=== PATIENT | female | born 1960 | race Caucasian/White ===

== ENCOUNTER → 2016-11-04 11:13 | Outpatient (CLI) | payer MEDICAID ==
[2016-11-04 11:37] LABS: BASOPHILS 0.3 % (0-2); EOSINOPHILS 2.3 % (0-7); HEMATOCRIT 40.6 % (36.0-48.0); HEMOGLOBIN 13.3 g/dL (12-16); IMMATURE GRANULOCYTES 0.2 % (0-5); LYMPHOCYTES 27.9 % (15-50); MCHC 32.8 g/dL (31.0-37.0); MCV 91.4 fL (80.0-100.0); MEAN PLATELET VOLUME 8.7 fL (7.4-10.4); MONOCYTES 4.4 % (2-11); NEUTROPHILS 64.9 % (40-80); PLATELET COUNT 381 10x3/uL (130-400); RBC 4.44 10x6/uL (4.00-5.40); RDW 12.8 % (11.5-14.5)
== END | disposition home or self-care (01) ==
LOC: D.LAB 11:13
PROVIDERS: Internal Medicine Gastroenterology
DX: K29.71 Gastritis, unspecified, with bleeding (principal); K25.3 Acute gastric ulcer without hemorrhage or perforation; K44.9 Diaphragmatic hernia without obstruction or gangrene; K20.9 Esophagitis, unspecified; K26.3 Acute duodenal ulcer without hemorrhage or perforation; R93.3 Abnormal findings on diagnostic imaging of other parts of digestive tract

== ENCOUNTER → 2016-12-20 07:58 | Outpatient (CLI) | payer MEDICAID ==
[2016-12-20 08:55] LABS: HELICOBACTER PYLORI IGG NEGATIVE (NEGATIVE)
[2016-12-20 09:02] LABS: ALBUMIN 4.8 g/dL (3.4-5.0); BILIRUBIN - DIRECT 0.07 mg/dL (0.00-0.30); BILIRUBIN - INDIRECT 0.53 mg/dL (0.00-1.00); BILIRUBIN - TOTAL 0.6 mg/dL (0.2-1.3)
== END | disposition home or self-care (01) ==
LOC: D.LAB 12-15 10:00 → D.CT 12-15 10:30 → D.LAB 07:58
PROVIDERS: Internal Medicine Gastroenterology
DX: R11.0 Nausea (principal); R10.9 Unspecified abdominal pain

== ENCOUNTER → 2017-02-20 07:43 | Outpatient (CLI) | payer MEDICAID | END | disposition home or self-care (01) | LOC: D.CT 02-16 08:00 | DX: R10.9 Unspecified abdominal pain (principal); R10.13 Epigastric pain ==

== ENCOUNTER 2017-04-11 21:10 | Emergency (ER) | payer MEDICAID ==
[2017-04-11 21:40] LABS: BASOPHILS 0.3 % (0-2); EOSINOPHILS 4.5 % (0-7); HEMATOCRIT 37.9 % (36.0-48.0); HEMOGLOBIN 12.5 g/dL (12-16); IMMATURE GRANULOCYTES 0.1 % (0-5); MCH 30.3 pg (26.0-34.0); MCV 91.8 fL (80.0-100.0); MEAN PLATELET VOLUME 8.6 fL (7.4-10.4); MONOCYTES 6.1 % (2-11); PLATELET COUNT 423 10x3/uL (130-400); RBC 4.13 10x6/uL (4.00-5.40); RDW 12.3 % (11.5-14.5); WBC 9.8 10x3/uL (4.8-10.8)
[2017-04-11 21:51] LABS: HCG SERUM NEGATIVE (NEGATIVE)
[2017-04-11 21:52] LABS: ALBUMIN 4.1 g/dL (3.4-5.0); ALKALINE PHOSPHATASE 65 U/L (46-116); ALT (SGPT) 13 U/L (10-68); BILIRUBIN - TOTAL 0.17 mg/dL (0.2-1.3); CALC OSMOLALITY 286 mosm/kg (275-300); CARBON DIOXIDE 30.1 mmol/L (21.0-32.0); CHLORIDE - SERUM 104 mmol/L (98-107); CREATININE - SERUM 0.8 mg/dL (0.6-1.3); GLUCOSE 106 mg/dL (74-106); POTASSIUM - SERUM 4.4 mmol/L (3.5-5.1); PROTEIN - SERUM 7.9 g/dL (6.4-8.2); SODIUM 141 mmol/L (136-145); UREA NITROGEN 30 mg/dL (7-18); eGFR NON AFRICAN AMERICAN 78 mL/min (90-120)
[2017-04-11 22:00] LABS: APPEARANCE CLEAR (CLEAR); BILIRUBIN NEGATIVE (NEGATIVE); COLOR YELLOW (YELLOW); GLUCOSE NEGATIVE (NEGATIVE); KETONE NEGATIVE (NEGATIVE); NITRITE NEGATIVE (NEGATIVE); PROTEIN NEGATIVE (NEGATIVE); SPECIFIC GRAVITY 1.025 (1.005-1.020); UROBILINOGEN NORMAL (NORMAL); WHITE CELLS - URINE 0-5 /hpf (0-5)
[2017-04-11 22:01] LABS: BACTERIA FEW /hpf (NONE SEEN); EPITHELIAL CELLS 0-5 /hpf (0-5); RED CELLS - URINE OCC /hpf (0-5)
== END 2017-04-12 01:42 | disposition home or self-care (01) ==
LOC: D.ER 21:10
PROVIDERS: Emergency Medicine
DX: N23 Unspecified renal colic (principal); I10 Essential (primary) hypertension

== ENCOUNTER → 2017-06-20 07:45 | Outpatient (CLI) | payer OTHER ==
[~2017-06-20 07:45] MED LIST: BENTYL 20 MG TA20 MG PO; HYDROCODONE-APA1 TAB PO; LIBRAX CAPSULE1 CAP PO; LISINOPRIL-HCTZ1 TA2 PO; OMEPRAZOLE40 MG PO; PRAVACHOL40 MG PO; XANAX0.5 MG PO; ZOFRAN ODT4 MG/UDTAB PO
[2017-06-20 08:36] LABS: BASOPHILS 0.3 % (0-2); EOSINOPHILS 5.9 % (0-7); HEMATOCRIT 36.7 % (36.0-48.0); HEMOGLOBIN 11.9 g/dL (12-16); IMMATURE GRANULOCYTES 0.1 % (0-5); LYMPHOCYTES 36.2 % (15-50); MCH 28.8 pg (26.0-34.0); MCHC 32.4 g/dL (31.0-37.0); MCV 88.9 fL (80.0-100.0); MEAN PLATELET VOLUME 8.7 fL (7.4-10.4); MONOCYTES 4.2 % (2-11); NEUTROPHILS 53.3 % (40-80); PLATELET COUNT 427 10x3/uL (130-400); RBC 4.13 10x6/uL (4.00-5.40); RDW 12.6 % (11.5-14.5); WBC 10.2 10x3/uL (4.8-10.8)
[2017-06-20 08:45] LABS: HELICOBACTER PYLORI IGG NEGATIVE (NEGATIVE)
[2017-08-15 11:06] VITALS: BMI 37.1
== END | disposition home or self-care (01) ==
LOC: D.LAB 07:45
PROVIDERS: Internal Medicine Gastroenterology
DX: K25.7 Chronic gastric ulcer without hemorrhage or perforation (principal); K44.9 Diaphragmatic hernia without obstruction or gangrene; T18.2XXA Foreign body in stomach, initial encounter; K31.1 Adult hypertrophic pyloric stenosis

== ENCOUNTER 2017-08-15 10:05 | Day surgery (SDC) | payer OTHER, MEDICAID ==
[~2017-08-15] VITALS: Ht 152.4 cm; Wt 86.4 kg
--- NOTE | ~2017-08-15 | OP ---
PATIENT NAME: JACOB MORALEZ MEDICAL RECORD: [id number] :60 LOCATION:D.OPS ADMISSION DATE: SURGEON: DEMARCUS CERVANTES MD DATE OF OPERATION: 08/15/2017 PREOPERATIVE DIAGNOSES: 1. Pyloric stenosis. 2. Epigastric abdominal pain. 3. Nausea. 4. Gastroesophageal reflux. POSTOPERATIVE DIAGNOSES: 1. Pyloric stenosis. 2. Epigastric abdominal pain. 3. Nausea. 4. Gastroesophageal reflux. 5. Tight pyloric stenosis, also bezoar. PROCEDURES: 1. Esophagogastroduodenoscopy with antral biopsies. 2. Balloon dilation of pylorus with a wmuklkn-khb-tuxswihg balloon to 44-Malawian. SURGEON: Demarcus Cervantes MD LEGAL SERVICES MANAGER: None. BLOOD LOSS: Minimal. ANESTHESIA: Topical oral anesthesia with IV sedation. COMPLICATIONS: None. The risks, possible complications, and alternatives to the procedure were explained to the patient. She elects to proceed. ENDOSCOPIC COURSE: The patient was conveyed to endoscopy suite electively on 08/15/2017. IV sedation was induced by the anesthesia staff. A bite block was inserted. A gastroscope was inserted into the mouth. It was advanced easily into the hypopharynx. The esophagus was easily intubated as well as the stomach. I was unable to intubate the duodenum due to a very tight pyloric stenosis. I then predilated with a lobxdia-hic-vxdecovf balloon. I inserted a foklzsy-oxz-jbrsizxa balloon through the pylorus and then dilated to 44-Malawian. The dilation balloon was then removed. I was able to traverse the pylorus. I was able to traverse this easily with the endoscope. I advanced to the third portion of the duodenum. I then withdrew. I advanced a balloon again into the second portion of the duodenum and then withdrew the scope back over the dilation balloon and again redilated to 44-Malawian for 3 minutes. The balloon dilator was then removed. Cold endoscopic biopsies were obtained of the antrum. The endoscope was then withdrawn under direct vision. I plan to see the patient in my office in 2-3 weeks. She may require dilations again in the future. We are going to obtain a chest x-ray to rule out a pneumoperitoneum. OPERATIVE REPORT [id number] JACOB MORALEZ TRANSINT:[id number] Voice Confirmation ID: [id number] DOCUMENT ID: [id number] DEMARCUS CERVANTES MD at 1126 CC: YIMI PEREZ MD and PAOLA DOBSON [id number] DICTATION DATE: 08/15/17 1238 GAUGE CHECKER: 08/15/17 1303 [facility] 08/15/17 [place] [id number] [place] [id number]
[2017-08-15 10:35] LABS: BASOPHILS 0.5 % (0-2); EOSINOPHILS 6.6 % (0-7); HEMATOCRIT 35.6 % (36.0-48.0); HEMOGLOBIN 11.4 g/dL (12-16); IMMATURE GRANULOCYTES 0.2 % (0-5); LYMPHOCYTES 37.8 % (15-50); MCH 28.4 pg (26.0-34.0); MCV 88.8 fL (80.0-100.0); MEAN PLATELET VOLUME 8.9 fL (7.4-10.4); MONOCYTES 5.7 % (2-11); NEUTROPHILS 49.2 % (40-80); PLATELET COUNT 387 10x3/uL (130-400); RBC 4.01 10x6/uL (4.00-5.40); RDW 13.1 % (11.5-14.5); WBC 9.9 10x3/uL (4.8-10.8)
[2017-08-15 10:48] LABS: CALC OSMOLALITY 283 mosm/kg (275-300); CALCIUM 10.1 mg/dL (8.5-10.1); CARBON DIOXIDE 27.7 mmol/L (21.0-32.0); CHLORIDE - SERUM 103 mmol/L (98-107); CREATININE - SERUM 0.8 mg/dL (0.6-1.3); GLUCOSE 102 mg/dL (74-106); SODIUM 141 mmol/L (136-145); UREA NITROGEN 20 mg/dL (7-18); eGFR NON AFRICAN AMERICAN 78 mL/min (90-120)
[2017-08-15 11:06] VITALS: Ht 152.4 cm; Wt 86.4 kg
[2017-08-15] MEDS ORDERED: BENTYL 20 MG TA20 MG PO (11:11)
[2017-08-15] MEDS ORDERED: HYDROCODONE-APA1 TAB PO (11:11)
[2017-08-15] MEDS ORDERED: PRAVACHOL40 MG PO (11:12)
[2017-08-15] MEDS ORDERED: ZOFRAN ODT4 MG/UDTAB PO (11:13)
[2017-08-15] MEDS ORDERED: OMEPRAZOLE40 MG PO (11:13)
[2017-08-15] MEDS ORDERED: LISINOPRIL-HCTZ1 TA2 PO (11:13)
[2017-08-15] MEDS ORDERED: LIBRAX CAPSULE1 CAP PO (11:14)
[2017-08-15] MEDS ORDERED: XANAX0.5 MG PO (11:14)
== END 2017-08-15 14:40 | disposition home or self-care (01) ==
LOC: D.OPS 10:05
PROVIDERS: Anesthesiology
DX: K31.1 Adult hypertrophic pyloric stenosis (principal); R10.13 Epigastric pain; K21.9 Gastro-esophageal reflux disease without esophagitis; R11.0 Nausea; I10 Essential (primary) hypertension; E66.01 Morbid (severe) obesity due to excess calories; Z68.37 Body mass index [BMI] 37.0-37.9, adult; Z01.812 Encounter for preprocedural laboratory examination

== ENCOUNTER 2018-02-20 08:05 | Day surgery (SDC) | payer OTHER, MEDICAID ==
[~2018-02-20] VITALS: Ht 152.4 cm; Wt 81.6 kg
--- NOTE | ~2018-02-20 | OP ---
PATIENT NAME: JACOB MORALEZ MEDICAL RECORD: [id number] :60 LOCATION:D.OPS ADMISSION DATE: SURGEON: DEMARCUS CERVANTES MD DATE OF OPERATION: 02/20/2018 PREOPERATIVE DIAGNOSES: 1. Epigastric abdominal pain. 2. History of pyloric stenosis. POSTOPERATIVE DIAGNOSES: 1. Epigastric abdominal pain. 2. History of pyloric stenosis. 3. Moderate distal esophagitis, worrisome for eosinophilic esophagitis. 4. Mild bile gastritis. 5. Two pyloric channel ulcers. 6. Recurrent pyloric stenosis. PROCEDURE: 1. Esophagogastroduodenoscopy with antral and distal esophageal biopsies. 2. Pyloric dilation with a pjkyaxk-xlo-zxuvgfik balloon to 54-Spanish. SURGEON: Demarcus Cervantes MD ROASTMASTER: None. BLOOD LOSS: Minimal. ANESTHESIA: IV sedation. COMPLICATIONS: None. The risks, possible complications, and alternatives to the procedure were explained to the patient. She elects to proceed. ENDOSCOPIC COURSE: The patient was conveyed to the endoscopy suite electively on 02/20/2018. IV sedation was induced by the anesthesia staff. A bite block was inserted. A gastroscope was inserted into the mouth. It was advanced easily into the hypopharynx. The esophagus was easily intubated as were the stomach and duodenum. A recurrent pyloric stenosis was noted. While the gastroscope was still in the third portion of the duodenum, I advanced a jtrvdgm-dfr-ihiejgec balloon. I then dilated the pylorus to 54-Spanish times 2 minutes. I then deflated the balloon. There was some minor bleeding present. The balloon was withdrawn. I then examined the pylorus as well as the duodenum and identified no evidence of a full thickness perforation. Cold antral biopsies were obtained. Cold distal esophageal biopsies were obtained. The gastroscope was then withdrawn under direct vision. I will plan to see the patient in my office in 2-3 weeks. She can undergo pyloric dilations as needed. I need to ensure that she is on a proton pump inhibitor for the pyloric channel ulcers, which appear to be chronic. TRANSINT:[id number] Voice Confirmation ID: [id number] DOCUMENT ID: [id number] OPERATIVE REPORT [id number] JACOB MORALEZ DEMARCUS CERVANTES MD at 1525 CC: YIMI PEREZ MD and PAOLA DOBSON [id number] DICTATION DATE: 02/20/18 1034 SKEIN BLEACHER: 02/20/18 1057 [facility] 02/20/18 [facility] [address] [place] [address]
--- NOTE | ~2018-02-20 | HP ---
PATIENT: JACOB MORALEZ MEDICAL RECORD: [id number] ACCOUNT: [id number] LOCATION:[facility] : 60 ADMISSION DATE: 02/20/18 PCP: PAOLA DOBSON HISTORY AND PHYSICAL EXAMINATION CHIEF COMPLAINT: Epigastric abdominal pain. HISTORY OF PRESENT ILLNESS: The patient has had pyloric stenosis in the past and underwent a balloon dilation of this pyloric stricture and had improvement in her nausea and vomiting with that dilation. Some of her symptoms have now recurred. I am going to plan for an EGD with dilation of the pylorus with a djftwbx-ukk-yykbgkny balloon. HOME MEDICATIONS: Please see the nursing list. ALLERGIES: LATEX WELL NATURAL RUBBER. SOCIAL HISTORY: Nonsmoker. PAST MEDICAL AND SURGICAL HISTORY: Pyloric stenosis, hypertension. PHYSICAL EXAMINATION: GENERAL: The patient does not appear acutely ill. He does not appear chronically ill. VITAL SIGNS: Reviewed. EARS: External ears appear normal. EYES: Extraocular movements intact. NECK: Trachea is midline. CHEST: No intercostal retractions. PULMONARY: Nonlabored, no stridor. IMPRESSION: 1. History of pyloric stenosis. 2. Epigastric abdominal pain, postprandial. PLAN: EGD with balloon dilation of the pylorus. TRANSINT:[id number] Voice Confirmation ID: [id number] DOCUMENT ID: [id number] DEMARCUS CERVANTES MD at 1525 CC: YIMI PEREZ MD and PAOLA DOBSON [id number] DICTATION DATE: 02/20/18 1006 ASPHALT BLENDER: 02/20/18 1038 [facility] 02/20/18 [place] [id number] [place] [address]
[2018-02-20 08:43] VITALS: BP 117/82; Ht 152.4 cm; Wt 81.6 kg
== END 2018-02-20 11:27 | disposition home or self-care (01) ==
LOC: D.OPS 08:05
DX: K20.9 Esophagitis, unspecified (principal); K29.60 Other gastritis without bleeding; K25.9 Gastric ulcer, unspecified as acute or chronic, without hemorrhage or perforation; K31.1 Adult hypertrophic pyloric stenosis; I10 Essential (primary) hypertension; Z91.040 Latex allergy status; Z01.812 Encounter for preprocedural laboratory examination

== ENCOUNTER 2019-04-09 08:10 | Day surgery (SDC) | payer OTHER, BC ==
[~2019-04-09] VITALS: Ht 152.4 cm; Wt 88.2 kg
[2019-04-09 08:14] LABS: HEMATOCRIT 36.1 % (36.0-48.0); HEMOGLOBIN 11.7 g/dL (12-16); MCH 29.8 pg (26.0-34.0); MCHC 32.4 g/dL (31.0-37.0); MCV 91.9 fL (80.0-100.0); MEAN PLATELET VOLUME 8.2 fL (7.4-10.4); RBC 3.93 10x6/uL (4.00-5.40); RDW 12.5 % (11.5-14.5); WBC 6.8 10x3/uL (4.8-10.8)
[2019-04-09 08:18] LABS: CALC OSMOLALITY 284 mosm/kg (275-300); CALCIUM 9.8 mg/dL (8.5-10.1); CARBON DIOXIDE 28.8 mmol/L (21.0-32.0); CHLORIDE - SERUM 105 mmol/L (98-107); CREATININE - SERUM 0.7 mg/dL (0.6-1.3); GLUCOSE 88 mg/dL (74-106); POTASSIUM - SERUM 3.7 mmol/L (3.5-5.1); SODIUM 142 mmol/L (136-145); UREA NITROGEN 20 mg/dL (7-18); eGFR NON AFRICAN AMERICAN > 90 mL/min (90-120)
[2019-04-09 08:34] VITALS: BP 138/67; Ht 152.4 cm; Wt 88.2 kg
--- NOTE | 2019-04-09 13:00 | NUR ---
1251 DR. BILLY YOUNG, GIVES RESULTS TO PT AND PT'S SPOUSE. XRAY NOTIFIED OF ROOM NUMBER.
--- NOTE | 2019-04-09 13:50 | NUR ---
X RAY AT BEDSIDE, DR. CERVANTES EN ROUTE TO VIEW IMAGE.
--- NOTE | 2019-04-09 13:55 | NUR ---
AFTER VIEWING X RAY DR CERVANTES STATES THAT PT IS OK TO DC HOME.
--- NOTE | 2019-04-09 13:56 | NUR ---
PT DC INSTRUCTIONS REVIEWED AT THIS TIME, PT VERBALIZES UNDERSTANDING. PT IV REMOVED AT THIS TIME, INTACT, NO REDNESS OR SWELLING NOTED AT SITE.
--- NOTE | 2019-04-09 14:08 | NUR ---
PT LEAVING OPS AT THIS TIME VIA WC, NAD NOTED.
--- NOTE | 2019-04-11 16:33 | HP ---
PATIENT: JACOB MORALEZ MEDICAL RECORD: [id number] ACCOUNT: [id number] LOCATION:[facility] : 60 ADMISSION DATE: 04/09/19 PCP: PAOLA DOBSON HISTORY AND PHYSICAL EXAMINATION Cc: Vomiting HISTORY OF PRESENT ILLNESS: The patient has been having some vomiting. She has had a history of chronic pyloric channel ulcer. She underwent an EGD with antral biopsies and balloon dilation of pylorus by me on 02/20/2018. She now has recurrent symptoms and is to undergo EGD with balloon dilation of the pylorus as well as intramuscular Botox at the pylorus. The balloon dilation of the pylorus in the past has improved her symptoms for a while after the procedure, but her symptoms have recurred. She has been having epigastric abdominal pain as well. HOME MEDICATIONS: Please see the nursing list. ALLERGIES: LATEX WELL NATURAL RUBBER. SOCIAL HISTORY: Nonsmoker. PAST MEDICAL AND SURGICAL HISTORY: Arthritis, history of pyloric channel ulcer, gastroesophageal reflux, hypertension, also anxiety. REVIEW OF SYSTEMS: No history of CVA or seizures. No diabetes or thyroid problems. PHYSICAL EXAMINATION: GENERAL: The patient does not appear acutely ill. She does not appear chronically ill. VITAL SIGNS: Reviewed. EARS: External ears appear normal. EYES: Extraocular movements are intact. NECK: Trachea is midline. CHEST: No intercostal retractions. PULMONARY: Nonlabored. The entire physical examination was performed in the presence of a female nurse. IMPRESSION: 1. Epigastric abdominal pain. 2. Nausea, vomiting, rule out gastric outlet obstruction. 3. History of pyloric stenosis. PLAN: EGD. Balloon dilation of the pylorus. Endoscopic intramuscular injection of Botox into the pylorus. TRANSINT:[id number] Voice Confirmation ID: [id number] DOCUMENT ID: [id number] HISTORY AND PHYSICAL [id number] PAZ MORALEZDEMARCUS FULLER MD at 1633 CC: YIMI PEREZ MD and PAOLA DOBSON [id number] DICTATION DATE: 04/09/19 1218 PAPER BUNDLER: 04/09/[address] [facility] 04/09/19 [place] [id number] [place] [address]
--- NOTE | 2019-04-11 16:40 | OP ---
PATIENT NAME: JACOB MORALEZ MEDICAL RECORD: [id number] :60 LOCATION:D.[facility] ADMISSION DATE: SURGEON: DEMARCUS CERVANTES MD DATE OF OPERATION: 04/09/2019 PREOPERATIVE DIAGNOSES: 1. Epigastric abdominal pain. 2. Nausea and vomiting. 3. History of pyloric stenosis. POSTOPERATIVE DIAGNOSES: 1. Epigastric abdominal pain. 2. Nausea and vomiting. 3. History of pyloric stenosis. 4. 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 PROCEDURES: 1. Esophagogastroduodenoscopy with antral biopsies to rule out Helicobacter pylori. 2. Balloon dilation of the pylorus with a through the catheter balloon to 54-Hebrew. 3. Intramuscular Botox injection into the pylorus, 100 units. 4. Argon plasma coagulation ablation of gastric antral vascular ectasias. SURGEON: Demarcus Cervantes MD SERVER: None. BLOOD LOSS: Minimal. ANESTHESIA: IV sedation. COMPLICATIONS: None. The risks, possible complications and alternatives to the procedure were explained to the patient. She elects to proceed. The discussion specifically included but was not limited to, bleeding requiring an emergency reoperation, infection, gastric rupture. OPERATIVE COURSE: The patient was conveyed to the endoscopy suite electively on 04/09/2019. IV sedation was induced by the anesthesia staff. A bite block was inserted. A gastroscope was inserted into the mouth. It advanced easily into the hypopharynx. The esophagus was easily intubated as were the stomach and duodenum. Scarring of the pyloric channel was noted. Cold biopsies were obtained in the antrum. I advanced a through the catheter balloon through the pylorus. I then inflated to 54-Hebrew and kept it in place, inflated for 3 minutes. The balloon was then deflated and then removed. I then advanced a sclerotherapy needle, 50 units of Botox were injected one at the 11 o'clock position and one at the 4 o'clock position. The sclerotherapy needle was then removed. There were some gastric antral vascular ectasias, which can be a source of bleeding and anemia. I advanced the argon plasma assistant program manager utilizing the esophageal setting in the force mode, I ablated these gastric antral vascular OPERATIVE REPORT [id number] JACOB MORALEZ ectasias. The endoscope was then withdrawn under direct vision. Chest x-ray is pending. The patient is already on omeprazole. I am going to add an H2 scott at night. TRANSINT:[id number] Voice Confirmation ID: [id number] DOCUMENT ID: [id number] DEMARCUS CERVANTES MD at 1640 CC: YIMI PEREZ MD and PAOLA DOBSON [id number] DICTATION DATE: 04/09/19 1250 HORSE TREKKING GUIDE: 04/09/[address] [facility] 04/09/19 [place] [id number] [place] [id number]
== END 2019-04-09 14:08 | disposition home or self-care (01) ==
LOC: D.OPS 08:10
PROVIDERS: Anesthesiology; ATTEND Surgery
DX: R10.13 Epigastric pain (principal); R11.2 Nausea with vomiting, unspecified; K31.1 Adult hypertrophic pyloric stenosis; K31.819 Angiodysplasia of stomach and duodenum without bleeding; K21.9 Gastro-esophageal reflux disease without esophagitis; I10 Essential (primary) hypertension; F41.9 Anxiety disorder, unspecified; K25.7 Chronic gastric ulcer without hemorrhage or perforation; E78.5 Hyperlipidemia, unspecified